=== PATIENT | female | born 1990 | race Two or more races ===

== ENCOUNTER 2019-07-15 17:32 | Emergency (ER) | payer OTHER ==
[~2019-07-15] VITALS: Ht 154.9 cm; Wt 77.0 kg
[2019-07-15 17:56] VITALS: BP 127/90
== END 2019-07-15 22:40 | disposition left against medical advice (07) ==
LOC: ER 17:32
DX: Z53.21 Procedure and treatment not carried out due to patient leaving prior to being seen by health care provider (principal)

== ENCOUNTER 2019-12-05 12:32 | Emergency (ER) | payer OTHER ==
[~2019-12-05] VITALS: Ht 157.5 cm; Wt 75.0 kg
[2019-12-05] MEDS ORDERED: ACETAMINOPHEN 325MG TABLET PO STA (12:49)
[2019-12-05 14:27] LABS: CLARITY URINE CLEAR (CLEAR); COLOR URINE YELLOW (YELLOW); KETONES URINE NEGATIVE (NEGATIVE); LEUKOCYTE ESTERASE URINE NEGATIVE (NEGATIVE); NITRITE URINE NEGATIVE (NEGATIVE); OCCULT BLOOD URINE NEGATIVE (NEGATIVE); PROTEIN URINE NEGATIVE (NEGATIVE); SPECIFIC GRAVITY URINE 1.016 (1.005-1.030); UROBILINOGEN URINE 0.2 E.U./dL (0.2-1.0)
[2019-12-05 14:46] VITALS: BP 126/73
== END 2019-12-05 15:38 | disposition home or self-care (01) ==
LOC: ER 12:59
DX: B34.9 Viral infection, unspecified (principal)
CPT/HCPCS: 71045; 81003; 81025; 87804; 99284